=== PATIENT | female | born 1990 | race Hispanic/Latino ===

== ENCOUNTER 2024-01-29 16:01 | Emergency (ER) | payer BC ==
[~2024-01-29] VITALS: Ht 167.6 cm; Wt 130.2 kg
[2024-01-29] MEDS: ondanSETRON 4MG INJ IVP ONE (16:26)
[2024-01-29] MEDS: LIDOCAINE HCL 2% VISCOUS 15 ML UDCUP PO ONE (16:26)
[2024-01-29] MEDS: MAG/ALUM/SIMETH 30 ML UDCUP PO ONE (16:26)
[2024-01-29] MEDS: PANTOPrazole 40 MG/VIAL IVP ONE (16:26)
[2024-01-29 16:32] LABS: BASOPHILS # (AUTO) 0.03 K/uL (0.00-0.20); BASOPHILS % (AUTO) 0.3 % (0.0-5.0); EOSINOPHILS # (AUTO) 0.25 K/uL (0.00-0.70); EOSINOPHILS % (AUTO) 2.7 % (0.0-8.0); HEMATOCRIT 22.1 % (36-48); IMMATURE GRANULOCYTE ABSOLUTE 0.51 K/uL (0-1); LYMPHOCYTES # (AUTO) 4.3 K/uL (1.0-4.8); LYMPHOCYTES % (AUTO) 46.5 % (21.0-51.0); MEAN CORPUSCULAR VOLUME 102.8 fL (79-99); MONOCYTES # (AUTO) 0.7 K/uL (0.1-1.0); MONOCYTES % (AUTO) 7.7 % (3.0-13.0); NEUTROPHILS # (AUTO) 3.4 K/uL (1.8-7.7); NEUTROPHILS % (AUTO) 37.3 % (40.0-77.0); PLATELET COUNT (AUTO) 133 K/uL (130-400); RED BLOOD CELL COUNT(AUTO) 2.15 MIL/uL (4.00-5.50); RED CELL DISTRIBUTION WIDTH 21.1 % (11.0-15.5); WHITE BLOOD COUNT (AUTO) 9.2 K/uL (4.8-10.8)
[2024-01-29 16:43] LABS: CREATININE 0.7 mg/dL (0.5-1.0); POTASSIUM 4.1 mmol/L (3.5-5.1)
[2024-01-29 17:45] LABS: BAND NEUTROPHILS % (MANUAL) 4 % (0-2); EOSINOPHILS % (MANUAL) 1 % (1-6); LYMPHOCYTES % (MANUAL) 51 % (22-44); MAN.DIFF COMMENT-IMPRESSION MANUAL DIFFERENTIAL; MONOCYTES % (MANUAL) 7 % (2-9); REACTIVE LYMPHOCYTES 4 % (0-0); SEGMENTED NEUTROPHILS % 33 % (40-70); TOTAL CELLS COUNTED 100
[2024-01-29 17:46] LABS: WBC MORPHOLOGY IMMATURE LYMPHS 1+
[2024-01-29 17:53] VITALS: BP 131/71; PULSE 81; RESP 20; TEMP 97.1; O2SAT 97
[2024-01-29] MEDS ORDERED: PANT40TA55 PO (18:03)
[2024-01-29] MEDS ORDERED: DOCU-116 PO (18:03)
[2024-01-29] MEDS ORDERED: FERR324T4 PO (18:03)
== END 2024-01-29 18:23 | disposition home or self-care (01) ==
LOC: EDH 16:01
DX: J06.9 Acute upper respiratory infection, unspecified (principal); D64.9 Anemia, unspecified; E03.9 Hypothyroidism, unspecified; K21.9 Gastro-esophageal reflux disease without esophagitis
CPT/HCPCS: 99284; 96374; 71045; 96375; 84484; 80048; 85025; 36415; 93005; J2405; J2470